=== PATIENT | female | born 1965 | race Two or more races ===

== ENCOUNTER 2024-07-22 14:38 | Outpatient (RCR) | payer MEDICAID, SELFPAY ==
--- NOTE | 2024-07-28 22:08 | CTCFLWUP_ITS ---
Patient: BILL MATOS : 1965 Page 4 of 4 FOLLOW UP NOTE DATE OF SERVICE: 07/22/2024 NAME: BILL MATOS ACCOUNT: [id number] : 1965 AGE: 58 DIAGNOSIS: Stage I (T1 a N0, M0) ER positive, DC positive, HER-2/mode negative invasive ductal carcino ma of right breast cancer (01/25/2006). REASON FOR TODAY?S VISIT: This is office follow-up visit. Mrs. Matos is here at [facility]. She is clinically doing very well. Denies any complaints. Denies any cough, chest pain, abdominal pain or leg cramps. Ambulating well without any help HISTORY OF PRESENT ILLNESS: Judi Matos is a 58-year-old Swedish-speaking female with his tory of breast cancer diagnosed on 01/25/2006. 02/01/2006: Patient had a right breast partial mastectomy and sentinel lymph node biopsy. Surgical pa thology specimen showed pT1 N0 cM0 grade 2 stage I infiltrating ductal carcinoma. 05/06/2007?06/25/2007: Patient received 5040 cGy +1260 electron boost to tumor site. Patient was treated with surgery, adjuvant chemotherapy, radiation therapy as well as adjuvant tamoxi fen for 10 years. 06/07/2020: Left breast diagnostic mammogram? 04/25/2020: CT scan of the chest without contrast? 11/21/2020: CT scan of the chest without contrast? 11/30/2020: QuantiFERON-TB gold plus negative. Coccidioides antibody by complement fixation less than 1: 2 Coccidioides antibody IgM by NATALIA 0.2 (-) Coccidioides antibody IgG by NATALIA 1.3 (equivocal) 01/24/2021: QuantiFERON-TB gold plus negative Coccidioides antibody by his CF less than 1: 2 Coccidioides antibody IgM by NATALIA 0.2 (-) Coccidioides antibody IgG by NATALIA 0.7 (-) 01/25/2021: Left breast ultrasound?BI-RADS Category 2: Benign findings. 01/26/2021: Left breast diagnostic mammogram?BI-RADS Category 2: Benign findings. 04/27/2021: CT scan of the chest with IV contrast? 11/16/2021: CT scan of the chest without contrast PAST MEDICAL HISTORY: Hypothyroidism PAST SURGICAL HISTORY: MEDICATIONS: 1. levothyroxine - 112 mcg 1 tab Each Day 2. losartan-hydrochlorothiazide - 100-12.5 mg 1 tab Daily?Palabra Meds? Medications Last Reconciled by Lady Zhu MA on 07/17/2023 ALLERGIES: No Known Drug Allergies REVIEW OF SYSTEMS:?Clone ROS? Neurological: No headache, seizures or blurring of vision. Gastrointestinal: No nausea, vomiting, diarrhea or constipation. Cardiovascular: No palpitations or angina pains. Respiratory: No cough, chest pain or shortness of breath. PHYSICAL EXAMINATION:?ClonePE? VITAL SIGNS: Temperature?98.4, B/P?160/93, Oxygen?Saturation?99% Weight?176?lbs PAIN: 0 - No pain Conjunctiva white Neck supple. No adenopathy palpable in the neck axillary and inguinal regions. Chest clear to auscultation. Abdomen is soft no hepatosplenomegaly palpable. Extremities no clubbing or cyanosis. ASSESSMENT and plan: Stage I breast cancer history Cancer was diagnosed in 2005 Last mammogram was in August 2023 which was negative no clinical evidence of recurrence of her breast cancer. CT scan of the chest done on 11/16/2021 showed stable pulmonary nodules compared to previous CT scans d one on April 27, 2021. No new pulmonary nodules. History of right breast cancer breast cancer without any clinical evidence of recurrence at this time . Patient do not need to follow-up with oncology and can follow with the primary care Need mammogram once in a year Advised to take vitamin D3 daily Patient will like to follow gynecology we will see her back in clinic in 1 year with lab for follow-up. Electronically Signed by: {Object.Sanct_ID*PnP.NameFL@M}, {Object.Sanct_ID*PnP.Suffix@U} D: {Object.Sanct_Date} T: {Object.Sanct_Time} CC: Natalia?CONNIE Ryan PCP: Natalia Ryan Referring: Natalia Ryan This document was completed utilizing speech recognition software. Grammatical errors, random word in sertions, pronoun errors, and incomplete sentences are an occasional consequence of this system due t o software limitations, ambient noise, and hardware issues. Any formal questions or concerns about th e content, text or information contained within the body of this dictation should be directly address ed to the provider for clarification.
== END 2024-08-15 23:59 | disposition home or self-care (01) ==
LOC: SCTC 14:38
PROVIDERS: PCP Physician Assistant Medical; Referring Provider Internal Medicine Hematology & Oncology; Visit Provider Internal Medicine Hematology & Oncology
DX: Z08 Encounter for follow-up examination after completed treatment for malignant neoplasm (principal); Z85.3 Personal history of malignant neoplasm of breast
CPT/HCPCS: 99212; G0463

== ENCOUNTER → 2024-09-11 | Outpatient (CLI) | payer MEDICAID, SELFPAY ==
--- NOTE | 2024-09-11 10:15 | XR_ITS ---
Examination: Screening digital mammography, bilateral Computer aided detection 3-D breast Tomosynthesis, bilateral Date and time of exam: September 11, 2024 1006 hours Compared to mammograms dating to July 17, 2021 Indication: Screening, personal history right breast cancer 2006 Technique: Nonmagnified MLO, CC views of the breasts to been obtained, reconstructed from 3-D Tomosynthesis images. R2 computer aided detection program utilized for evaluation of suspicious masses and/or abnormal calcifications. 3-D Tomosynthesis images obtained. Findings: Scattered areas of fibroglandular density Stable scar formation right breast 3 mm circumscribed nodule 6:00 position left breast IMPRESSION: BI-RADS Category 0: Incomplete: Need additional imaging evaluation 3 mm circumscribed nodule 6:00 position left breast, recommend follow-up spot views of this nodule as well as left breast sonography to complete the workup.
== END | disposition home or self-care (01) ==
LOC: CDIM 09:50
PROVIDERS: PCP Physician Assistant Medical; Referring Provider Internal Medicine Hematology & Oncology; Visit Provider Internal Medicine Hematology & Oncology
DX: Z12.31 Encounter for screening mammogram for malignant neoplasm of breast (principal); R92.8 Other abnormal and inconclusive findings on diagnostic imaging of breast; N63.25 Unspecified lump in the left breast, overlapping quadrants; C50.911 Malignant neoplasm of unspecified site of right female breast
CPT/HCPCS: 77063; 77067

== ENCOUNTER → 2024-10-19 | Outpatient (CLI) | payer MEDICAID, SELFPAY ==
--- NOTE | 2024-10-19 12:30 | XR_ITS ---
Examination: Breast ultrasound, unilateral, left complete Date and time of exam: October 19, 2024 1333 hours INDICATIONS: Mammogram September 11, 2024 3 mm circumscribed nodule 6:00 position left breast Technique: Real-time xie scale ultrasonographic imaging performed left breast including all 4 quadrants as well as nipple retroareolar and axillary region. Findings: 6:00 cyst 4 x 4 millimeter IMPRESSION: BI-RADS Category 2: Benign findings Small benign cyst likely corresponding to the mammographic abnormality, no further workup is needed
--- NOTE | 2024-10-19 13:15 | XR_ITS ---
Examination: Diagnostic digital mammography, unilateral, left Computer aided detection 3-D breast Tomosynthesis, unilateral Date and time of exam: October 19, 2024 1341 hours INDICATIONS: Mammogram September 11, 2024 3 mm circumscribed nodule 6:00 position left breast Technique: Nonmagnified MLO, CC views of the left breast have been obtained, reconstructed from 3-D Tomosynthesis images. R2 computer aided detection program utilized for evaluation of suspicious masses and/or abnormal calcifications. 3-D Tomosynthesis images obtained. Findings: Scattered areas of fibroglandular density Circumscribed nodule on the spot compression films corresponds to 4 mm cyst described on left breast sonogram today Impression: BI-RADS category 2: Benign findings Return to yearly follow-up mammography
== END | disposition home or self-care (01) ==
PROVIDERS: PCP Physician Assistant Medical; Referring Provider Internal Medicine Hematology & Oncology; Visit Provider Internal Medicine Hematology & Oncology
DX: R92.322 Mammographic fibroglandular density, left breast (principal); N60.02 Solitary cyst of left breast; C50.911 Malignant neoplasm of unspecified site of right female breast
CPT/HCPCS: 76641; 77061; 77065; G0279